=== PATIENT | female | born 1970 | race Caucasian/White ===

== ENCOUNTER 2018-10-12 01:24 | Emergency (ER) | payer BC, OTHER ==
[~2018-10-12] VITALS: Ht 172.7 cm; Wt 90.7 kg
[~2018-10-12 01:24] MED LIST: VITAMINS PO
[2018-10-12 02:10] VITALS: BP_SYST 160
[2018-10-12 03:15] LABS: INR 0.9 (0.8-1.2); PROTHROMBIN TIME 9.6 SECS (9.5-12.5)
[2018-10-12 03:18] LABS: HEMATOCRIT 36.3 % (36-48); HEMOGLOBIN 12.6 g/dL (12.0-16.0); MEAN CORPUSCULAR HEMOGLOBIN 31 pg (27-31); MEAN CORPUSCULAR HGB CONC 35 % (32-36); MEAN CORPUSCULAR VOLUME 89 fL (79.0-98.0); PLATELET COUNT (AUTO) 312 K/uL (130-430); RED CELL DISTRIBUTION WIDTH 12.7 % (9.0-15.0)
[2018-10-12 03:19] LABS: BASOPHILS % (AUTO) 0.4 % (0.0-2.0); LYMPHOCYTES % (AUTO) 26.4 % (20.5-51.5); MONOCYTES % (AUTO) 7.3 % (1.7-9.3); NEUTROPHILS # (AUTO) 5.8 K/uL (1.8-7.7); NEUTROPHILS % (AUTO) 64.9 % (40.0-70.0)
[2018-10-12 03:20] LABS: EOSINOPHILS # (AUTO) 0.1 K/uL (0.0-0.4); LYMPHOCYTES # (AUTO) 2.4 K/uL (1.0-5.5); MONOCYTES # (AUTO) 0.7 K/uL (0.0-1.0)
[2018-10-12 03:50] VITALS: BP_SYST 154
== END 2018-10-12 03:50 | disposition home or self-care (01) ==
LOC: SED 01:24
DX: R04.0 Epistaxis (principal); I10 Essential (primary) hypertension
CPT/HCPCS: 36415; 85025; 85610-TC; 99283; 99284

== ENCOUNTER 2018-10-16 21:34 | Emergency (ER) | payer OTHER ==
[~2018-10-16] VITALS: Ht 172.7 cm; Wt 113.4 kg
[2018-10-16 21:55] VITALS: BP_SYST 163
[2018-10-16] MEDS ORDERED: cloNIDine HCL 0.1 MG TABLET PO ONE (22:00)
[2018-10-17 00:03] VITALS: BP_SYST 130
== END 2018-10-17 00:03 | disposition home or self-care (01) ==
LOC: SED 21:34
DX: R04.0 Epistaxis (principal); I10 Essential (primary) hypertension; F41.9 Anxiety disorder, unspecified; Z98.890 Other specified postprocedural states
CPT/HCPCS: 99284